=== PATIENT | male | born 1970 | race Caucasian/White ===

== ENCOUNTER 2016-07-08 06:46 | Emergency (ER) | payer BC, OTHER ==
[~2016-07-08] VITALS: Ht 177.8 cm; Wt 215.0 kg
[~2016-07-08 06:46] MED LIST: BUPR-175 PO; CITA10TA4 PO; LEVO.125 PO; XANA0.5T PO
[2016-07-08 06:59] VITALS: BP 132/89; PULSE 87; RESP 16; TEMP 99; O2SAT 94
[2016-07-08] MEDS ORDERED: VIIB40TA PO (07:11)
[2016-07-08] MEDS ORDERED: BUPR150CR PO (07:11)
[2016-07-08] MEDS ORDERED: LEVO200T4 PO (07:11)
--- NOTE | 2016-07-08 07:50 | PD ---
HPI Chief Complaint: Injury Time Seen by Provider: 07:13 Travel History International Travel<30 days: No Contact w/Intl Traveler<30days: No Traveled to known affect area: No History of Present Illness HPI 46-year-old male states 3-1/2 weeks ago he got tripped up playing [employer] and has been having pain to his left knee and right lower leg ever since. Pain got worse this morning so he elected to come in. Pain is worse with movement. He denies other modifying factors. Quality pain is sharp. He states he did not hit his head or black out. He denies other concurrent complaints. PFSH Past Medical History Blood Disorders: No Depression: Yes Cancer: No Cardiovascular Problems: Yes (hx of htn not taking medication) Diabetes: No Diminished Hearing: No Gastrointestinal Disorders: Yes GERD: Yes Genitourinary: No Hypertension: Yes Immune Disorder: No Implanted Vascular Access Dvce: No Musculoskeletal: No Neurologic: No Psychiatric: Yes Respiratory: Yes Sleep Apnea: Yes (SLEEP APNEA, C PAP) Thyroid Disease: Yes Tetanus Vaccination: Unknown Past Surgical History Abdominal Surgery: Yes (gastric bypass) Other Surgery: No Social History Alcohol Use: Yes (BEER SOCIALLY) Tobacco Use: No Substance Use: No Allergies-Medications (Allergen,Severity, Reaction): Coded Allergies: No Known Allergies (Verified , 07/08/16) Reported Meds & Prescriptions Reported Meds & Active Scripts Active Reported Wellbutrin SR 12 HR (Bupropion HCl) 150 Mg Tab 75 Mg PO Q12HR Viibryd (Vilazodone) 40 Mg Tab 40 Mg PO DAILY Levothyroxine (Levothyroxine Sodium) 200 Mcg Tab 200 Mcg PO DAILY Review of Systems Except as stated in HPI: all other systems reviewed are Neg Physical Exam Narrative General: 46 y/o 215 kg male patient in no apparent distress Skin: Warm and dry Eyes: Pupils equal NECK: no pain with palpation, nexus criteria negative Cardiovascular: Regular rate and rhythm Respiratory: Normal respiratory effort noted, clear to auscultation bilaterally Abdomen: soft, nontender, nondistended Back: No step-offs, midline spine nontender with palpation Extremities: Pain with palpation of left posterior knee and right mid lower leg without knee or ankle involvement on right, no lacerations over, neurovascularly intact, no pain with palpation of other joints Neuro: awake, alert, sensation and motor grossly intact Data Data Last Documented VS Vital Signs Date Time Temp Pulse Resp B/P Pulse Ox O2 Delivery O2 Flow Rate FiO2 07/08/16 09:48 70 16 156/74 98 07/08/16 06:59 99.0 Orders Knee, Complete (4vws) (07/08/16 07:15) Tibia/Fibula (Ap/Lat) (07/08/16 07:15) Ketorolac Inj (Toradol Inj) (07/08/16 08:00) Knee, Ltd (1 Or 2vws) (07/08/16 ) MDM Medical Decision Making Medical Screen Exam Complete: Yes Emergency Medical Condition: Yes Medical Record Reviewed: Yes (past history confirmed) Interpretation(s) Last 24 hours Impressions Tibia/Fibula X-Ray 07/08/16714 Signed Impressions: Service Date/Time: Friday, July 08, 2016 07:41 - CONCLUSION: Suboptimal evaluation secondary to poor penetration of the soft tissues. Cannot exclude a proximal fibular fracture. Further evaluation with tightly collimated oblique views of the proximal tib-fib versus additional evaluation with CT may be beneficial at this location correlates with the patient's symptomatology. Joseph Cowan MD Knee X-Ray 07/08/16714 Signed Impressions: Service Date/Time: Friday, July 08, 2016 07:44 - CONCLUSION: Negative for fracture. Maximiliano Hinton MD FACR Differential Diagnosis Fracture, strain, sprain Narrative Course We will check x-ray and dose with Toradol and reevaluate ed workup no acute, Patient denies any new complaints and states that they are feeling better. Patient happy with care, all questions answered. Patient knows that follow up is incumbent on them and to return to the emergency room immediately if new or worsening symptoms develop. Patient given strict return precautions, vitals reviewed and are normal, agrees to further workup as an outpatient. Diagnosis Primary Impression: Left knee pain Qualified Code: M25.562 - Acute pain of left knee Additional Impression: Right leg pain Patient Instructions: General Instructions Additional Instructions: return as needed, alternate tylenol and motrin, follow with primary this week Med/Other Pt SpecificInfo: Prescription(s) given Disposition: 01 DISCHARGE HOME Condition: Stable Suha Contreras MD Jul 08, 2016 07:50
[2016-07-08] MEDS ORDERED: KETOROLAC TROMETHAMINE 60 MG/2 ML (IM) VIAL IM ONE (08:00)
--- NOTE | 2016-07-08 08:36 | RADHPO ---
EXAM DATE/TIME: 07/08/2016 07:41 CORRECTION Corrected on: July 08, 2016; [facility] COMPARISON: No previous studies available for comparison. INDICATIONS : Right lower leg pain post trip/almost fall 2 weeks ago. MEDICAL HISTORY : Hypertension. Gastroesophageal reflux disease. Sleep apnea. Thyroid disease. SURGICAL HISTORY : Gastric bypass. ENCOUNTER: Initial ACUITY: 2 weeks PAIN SCORE: 8/10 LOCATION: Right tibia/fibula FINDINGS: There is longitudinally oriented lucency projecting over the fibula on the frontal view of the leg. O n the lateral cavity appears to be gentle angulation of the proximal fibula, apex posterior. Bony det ail is relatively poorly seen secondary to under penetration through the soft tissues in this patient . The tibia appears grossly intact. CONCLUSION: Suboptimal evaluation secondary to poor penetration of the soft tissues. Cannot exclude a proximal fi bular fracture. Further evaluation with tightly collimated oblique views of the proximal tib-fib vers us additional evaluation with CT may be beneficial at this location correlates with the patient's sym ptomatology. Joseph Cowan MD on July 08, 2016 at 8:32 Board Certified Radiologist. This report was verified electronically. Joseph Cowan MD on July 08, 2016 at 8:40 Board Certified Radiologist. This report was verified electronically.
--- NOTE | 2016-07-08 08:44 | RADHPO ---
EXAM DATE/TIME: 07/08/2016 07:44 [facility] COMPARISON: No previous studies available for comparison. INDICATIONS : Left knee pain post trip/almost fall 2 weeks ago. MEDICAL HISTORY : Hypertension. Gastroesophageal reflux disease. Sleep apnea. Thyroid disease. SURGICAL HISTORY : Gastric bypass. ENCOUNTER: Initial ACUITY: 2 weeks PAIN SCORE: 7/10 LOCATION: Right knee FINDINGS: Four view examination of the left knee demonstrates no evidence of fracture or dislocation. Bony min eralization is normal. The articular surfaces are intact. The suprapatellar soft tissues have a nor mal configuration. CONCLUSION: Negative for fracture. Maximiliano Hinton MD FACR on July 08, 2016 at 8:35 Board Certified Radiologist. This report was verified electronically.
--- NOTE | 2016-07-08 09:38 | RADHPO ---
EXAM DATE/TIME: 07/08/2016 09:04 [facility] COMPARISON: KNEE LEFT COMPLETE (4VWS), July 08, 2016, 7:44. INDICATIONS : Right knee/lower leg pain post trip/almost fall 2 weeks ago. MEDICAL HISTORY : Hypertension. Gastroesophageal reflux disease. Sleep apnea. Thyroid disease. SURGICAL HISTORY : Gastric bypass. ENCOUNTER: Initial ACUITY: 2 weeks PAIN SCORE: 8/10 LOCATION: Right knee FINDINGS: The examination demonstrates osteoarthritic changes. There is no acute fracture. The alignment is goo d. CONCLUSION: 1. Mild osteoarthritic changes. No acute fracture. Calvin Hinton MD on July 08, 2016 at 9:36 Board Certified Radiologist. This report was verified electronically.
[2016-07-08 09:48] VITALS: BP 156/74
== END 2016-07-08 09:50 | disposition home or self-care (01) ==
LOC: PHED 06:46
DX: M25.562 Pain in left knee (principal); M79.604 Pain in right leg; I10 Essential (primary) hypertension; W18.40XA Slipping, tripping and stumbling without falling, unspecified, initial encounter; Y93.89 Activity, other specified; Y92.838 Other recreation area as the place of occurrence of the external cause
CPT/HCPCS: 73560; 73564; 73590; 96372; 99283; J1885